=== PATIENT | male | born 1980 | race Caucasian/White ===

== ENCOUNTER 2017-12-22 11:13 | Emergency (ER) | payer OTHER ==
[~2017-12-22] VITALS: Ht 175.3 cm; Wt 89.5 kg
[~2017-12-22 11:13] MED LIST: ALPRAZOLAM0.5 MG PO; ATARAX,VISTARIL25 MG PO; ATIVAN1 MG PO; DURICEF500 MG PO; KEPPRA500 MG PO; LORTAB 5-325 M1 EACH PO; METHADONE 22 MG/1 ML PO; METHADONE5 MG; OXYCODONE-ACET1 EACH PO; OXYCONTIN30 MG PO; PEN-VEE K,VEET500 MG PO; PERCOCET 10/1 TABLET PO; PREDNISONE20 MG PO; ROXICODONE5 MG PO; XANAX0.5 MG PO
[2017-12-22] MEDS ORDERED: AUGMENTIN875 MG PO (14:03)
[2017-12-22] MEDS ORDERED: TRAMADOL HCL50 MG PO (14:03)
[2017-12-22 14:16] VITALS: BP 160/99
== END 2017-12-22 14:18 | disposition home or self-care (01) ==
LOC: EME 11:13
DX: S02.32XA Fracture of orbital floor, left side, initial encounter for closed fracture (principal); H05.232 Hemorrhage of left orbit; R93.0 Abnormal findings on diagnostic imaging of skull and head, not elsewhere classified; Y04.2XXA Assault by strike against or bumped into by another person, initial encounter; J45.909 Unspecified asthma, uncomplicated; F17.200 Nicotine dependence, unspecified, uncomplicated; Z79.891 Long term (current) use of opiate analgesic
CPT/HCPCS: 70450; 70486; 99281; 99284